=== PATIENT | male | born 1970 | race Native Hawaiian/Other Pacific Islander ===

== ENCOUNTER 2020-09-05 11:02 | Emergency (ER) | payer OTHER ==
[~2020-09-05] VITALS: Ht 182.9 cm; Wt 86.2 kg
[2020-09-05 11:02] VITALS: TEMP 98.3
[~2020-09-05 11:02] MED LIST: ACET7.5T70 PO; ADIPEX PO; ADIPEX-P37.5 M1 OR; MOBIC7.5 M1 PO; RANI150T78 PO; XANAX PO
[2020-09-05 14:12] VITALS: BP 117/65
== END 2020-09-05 14:12 | disposition home or self-care (01) ==
LOC: ED 11:08
PROC: 0HQLXZZ Repair Left Lower Leg Skin, External Approach (ICD-10-PCS; principal; 2020-09-05)
DX: S81.812A Laceration without foreign body, left lower leg, initial encounter (principal); W20.8XXA Other cause of strike by thrown, projected or falling object, initial encounter; Y92.89 Other specified places as the place of occurrence of the external cause
CPT/HCPCS: 96360; 96365; 96375; 99284; J0690; J2001; J2270; J2405

== ENCOUNTER 2020-09-19 13:42 | Emergency (ER) | payer OTHER ==
[~2020-09-19] VITALS: Ht 177.8 cm; Wt 86.2 kg
[2020-09-19 13:59] VITALS: BP 120/77; TEMP 98.8
== END 2020-09-19 19:27 | disposition home or self-care (01) ==
LOC: ED 13:42
DX: Z48.02 Encounter for removal of sutures (principal)